=== PATIENT | female | born 1985 | race Caucasian/White ===

== ENCOUNTER → 2017-06-19 | Outpatient (CLI) | payer OTHER ==
[~2017-06-19] MED LIST: BCPILLS PO
== END | disposition home or self-care (01) ==
LOC: C.PAPS 13:15
PROVIDERS: ATTEND Physician Assistant
DX: Z12.4 Encounter for screening for malignant neoplasm of cervix (principal)

== ENCOUNTER 2020-11-27 07:08 | Inpatient (IN) ==
[2020-11-27] MEDS ORDERED: OXYTOCIN 30 UNITS/500 ML BAG IV PRN ×2 (14:29→22:53)
[2020-11-27 14:46] LABS: Hemoglobin 12.2 g/dL (12.0-16.0); Mean Corpuscular Hemoglobin 31.8 pg (25-34); Mean Corpuscular Hgb Conc 33.9 g/dL (32-36); Mean Corpuscular Volume 93.8 fL (80-100); Mean Platelet Volume 12.2 fL (7.4-10.4); Platelet Count 240 K/uL (130-400); RDW Coefficient of Variation 14.4 % (11.5-14.5); RDW Standard Deviation 49.4 fL (36.4-46.3); Red Blood Count 3.84 M/uL (4.2-5.4)
[2020-11-27] MEDS ORDERED: PENICILLIN G POTASSIUM 6 MU in DEXTROSE 5% 250 ML IV STA (22:52)
--- NOTE | 2020-11-27 22:53 | History & Physical Report ---
Date of Service November 27, 2020 Assessment & Plan (1) GDM, class A2: Admission and Anticipated Discharge Date Admission Date: November 27, 2020 History of Present Illness Chief Complaint: induction of labor for GDM on insulin Primary Care Provider: NO PCP 35 F P1001 at 39.3 weeks for IOL for GDM controlled with insulin Allergies Allergy/AdvReac Type Severity Reaction Status Date / Time No Known Drug Allergies Allergy Verified 12/21/18 11:04 Home Medications Medication Instructions Recorded Confirmed Type insulin glargine 100 unit/mL 20 unit SUBCUT AMPM 11/15/20 11/27/20 History subcutaneous solution (Lantus U-100 Insulin) vits no.124-ferrous fum 800 tab PO DAILY 11/15/20 11/27/20 History 27 mg iron-folic acid 800 mcg tablet ( Vitamin) Patient History Medical History Gestational diabetes Obesity Surgical History S/P wisdom tooth extraction Family History Other Family history of diabetes mellitus Social History Smoking Status: Former smoker Second Hand Exposure: No; Hx Alcohol Use: No Hx Substance Use: No Preferred Language: Mosotho Communication Ability: Effective Visual Impairment: No Limitations Seafood Preparer Required: No Beliefs That Will Affect Care: None marital status: Single Current Living Situation: Significant Other Current Living Situation Comment: 10 yo [place] current occupational status: employed Feels Safe at Home: Yes Diet Comment: Diabetic diet caffeine: Yes Dental Care, Regularly: Yes Seatbelt Use: always Do you think of yourself as: straight/heterosexual Assistive Devices: None 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 Review of Systems All systems reviewed & are unremarkable except as noted in HPI & below Physical Exam Constitutional: WD/WN, vitals as above comfortable Eyes: PERRL, conjunctivae normal, anicteric sclerae Respiratory: normal respiratory effort, lungs clear to auscultation Cardiovascular: RRR, no murmur, no edema Neurologic: patellar DTR's 2+ bilat, sensation intact Psychiatric: A+Ox3, euthymic affect Genitourinary: no vaginal lesions, no adnexal mass normal external appearance OB Exam Abdomen: + heart tones and + vertex Manual OB Exam: + cervical dilation 3 cm, + cervical effacement 60% and + station -2 OB Exam Monitor Tracing: + external FHT monitor used, + external uterine monitor used, + category I and + normal FHT variability Results & Data ([facility]) Vital Signs (Past 12 Hours) Vital Signs Temp Pulse Resp BP 11/27/20 20:40 36.7 C 86 18 135/89 11/27/20 19:04 18 11/27/20 14:05 93 H 126/74 Diagnostic Findings GBS is positive. Covid is negative Code Status & VTE Plan VTE Prophylaxis Plan VTE Prophylaxis will be ordered: No
[2020-11-27] MEDS: LACTATED RINGER'S 1,000 ML IV PRN (23:06)
[2020-11-28] MEDS ORDERED: BUPIVACAINE 0.25% 30 ML VIAL ONE (00:19)
[2020-11-28] MEDS ORDERED: ePHEDrine sulfate 50 MG/ML AMP ONE (00:19)
[2020-11-28] MEDS ORDERED: fentaNYL citrate 100 MCG/2 ML VIAL ONE (00:19)
[2020-11-28] MEDS ORDERED: fentaNYL 2MCG/ML ROPIVACAINE 1.25MG/ML 100 ML BAG EPI ONE (00:20)
[2020-11-28] MEDS ORDERED: NALBUPHINE HCL INJ 10 MG/ML AMP IV PRN (01:12)
[2020-11-28] MEDS ORDERED: NALOXONE HCL 0.4 MG/1 ML VIAL/CARP IV PRN (01:12)
[2020-11-28] MEDS ORDERED: ePHEDrine sulfate 50 MG/ML AMP IV PRN (01:12)
[2020-11-28] MEDS ORDERED: ONDANSETRON INJ 2 MG/ML 2 ML VIAL IV PRN (01:12)
[2020-11-28] MEDS ORDERED: NALOXONE HCL 1 MG in SODIUM CHLORIDE 0.9% 1000ML 1,000 ML IV PRN (01:12)
[2020-11-28] MEDS ORDERED: diphenhydrAMINE 50 MG/ML VIAL IV PRN (01:12)
[2020-11-28] MEDS ORDERED: fentaNYL 2MCG/ML ROPIVACAINE 1.25MG/ML 100 ML BAG EPI PRN (01:12)
--- NOTE | 2020-11-28 01:20 | Anesthesiology Consultation ---
Date of Service November 28, 2020 Assessment & Plan Chart Review Chart Review: Patient NOT seen in Pre Admission Testing and Acceptable Risk for Labor Epidural Consults Requested none ASA ASA3 Proposed Anesthesia Anesthesia Type: Labor Epidural and CSE Risk / Benefits Reviewed With: PT / POA / Parent / Guardian, Accepts Plan and Informed Consent Obtained History Height/Weight Height: 5 ft 2 in Weight: 104.3 kg Allergies Allergy/AdvReac Type Severity Reaction Status Date / Time No Known Drug Allergies Allergy Verified 12/21/18 11:04 Medications Home Medications Medication Instructions Recorded Confirmed Last Taken insulin glargine 100 unit/mL 20 unit SUBCUT AMPM 11/15/20 11/27/20 11/27/20 06:00 subcutaneous solution (Lantus U-100 Insulin) vits no.124-ferrous fum 800 tab PO DAILY 11/15/20 11/27/20 11/27/20 06:00 27 mg iron-folic acid 800 mcg tablet ( Vitamin) Active Medications Generic Name Dose Route Start Last Admin Trade Name Freq PRN Reason Stop Dose Admin Lactated Ringer's 1,000 mls @ 125 mls/hr 11/27/20 14:29 11/28/20 01:11 Lr IV 11/29/20 14:28 999 mls/hr .Q8H PRN Infusion L&D Protocol Protocol Oxytocin 30 units in 500 mls @ 4 mls/hr 11/27/20 22:53 11/28/20 01:11 Pitocin IV 11/29/20 22:52 0.24 units/hr .Q24H PRN 4 mls/hr Labor Induction/Augmentation Titration Protocol 0.24 UNITS/HR NPO Date Last Intake of Fluids: 11/28/20 Time Last Intake of Fluids: 00:30 Date Last Intake of Solids: 11/27/20 Time Last Intake of Solids: 19:30 Past Medical History Medical History Gestational diabetes Obesity Exercise / Class Metabolic Activity II 4-5 Yardwork/Stairs/Walk up hill Past Family History Family History Other Family history of diabetes mellitus Past Surgical History Surgical History S/P wisdom tooth extraction Past Anesthesia History No Hx of Anesthesia Complications and No Family Hx of Anesthesia Complications History of PONV No Hx of PONV and History of PONV Social History Smoking Status: Former smoker Hx Alcohol Use: No Hx Substance Use: No substance use type: does not use Review of Systems no chest pain or sob Physical Exam Vital Signs Last Vital Signs Temp 36.7 C 11/27/20 22:55 Pulse 86 11/28/20 01:14 Resp 18 11/28/20 00:56 BP 130/71 11/28/20 00:56 Pulse Ox 99 11/28/20 01:14 ENMT Mouth: no TMJ abnormality Thyromental Distance: > or= 3.5 Finger Breadths Mallampati Class: II Neck normal visual inspection Respiratory normal respiratory effort Auscultation: lungs clear to auscultation bilaterally Cardiovascular Rate/Rhythm: regular rate and regular rhythm Musculoskeletal Spine: normal cervical ROM Neurologic moves all extremities Psychiatric Orientation: alert and oriented x 3 Testing Laboratory Results 11/27/20 14:35 11/27/20 11/27/20 21:31 14:23 POC Glucose 103 H 118 H
[2020-11-28] MEDS: LACTATED RINGER'S 1,000 ML IV PRN (02:24)
[2020-11-28] MEDS: PENICILLIN G POTASSIUM 3 MU in DEXTROSE 5% 100 ML IV PRN ×2 (03:04→07:02)
--- NOTE | 2020-11-28 07:40 | Obstetrical Progress Note ---
Date of Service November 28, 2020 Assessment & Plan Admission and Anticipated Discharge Date Admission Date: November 27, 2020 Subjective Patient is seen and reviewed her history with her. GDMA2 on insulin Obesity GBS+ Denies any other medical problems nor surgeries No h/o STD's, no genital HSV She has received epidural for pain and 2 doses of PCN FHR categ I [place] ctxs q 2-3 min, Pitocin is at 10 miu/min Offered her AROM but wants to hold on since her left to go home. Continue to monitor closely. Results & Data ([facility]) Vital Signs (Past 12 Hours) Vital Signs Temp Pulse Resp BP Pulse Ox 11/28/20 07:34 79 97 11/28/20 07:29 70 98 11/28/20 07:26 69 131/66 11/28/20 07:24 73 98 11/28/20 07:19 74 98 11/28/20 07:14 83 99 11/28/20 07:10 36.5 C 83 20 133/67 11/28/20 07:09 84 98 11/28/20 07:04 79 98 11/28/20 06:59 73 97 11/28/20 06:57 68 129/60 11/28/20 06:54 74 97 11/28/20 06:49 71 97 11/28/20 06:44 72 98 11/28/20 06:40 70 125/66 11/28/20 06:39 76 97 11/28/20 06:34 73 98 11/28/20 06:29 69 98 11/28/20 06:26 69 124/67 11/28/20 06:24 81 98 11/28/20 06:19 78 98 11/28/20 06:14 105 H 99 11/28/20 06:11 70 139/82 11/28/20 06:09 72 97 11/28/20 06:04 76 97 11/28/20 05:59 86 97 11/28/20 05:55 74 145/83 H 11/28/20 05:54 75 97 11/28/20 05:49 76 98 11/28/20 05:44 75 98 11/28/20 05:40 76 137/82 11/28/20 05:39 79 98 11/28/20 05:34 85 98 11/28/20 05:29 87 97 11/28/20 05:26 37.1 C 80 16 127/71 11/28/20 05:24 91 H 98 11/28/20 05:19 85 98 11/28/20 05:14 84 98 11/28/20 05:09 79 99 11/28/20 05:04 87 99 11/28/20 04:59 90 98 11/28/20 04:58 68 130/68 11/28/20 04:54 78 97 11/28/20 04:49 78 98 11/28/20 04:44 82 98 11/28/20 04:40 78 124/61 11/28/20 04:39 80 97 11/28/20 04:34 78 98 11/28/20 04:29 76 97 11/28/20 04:25 71 133/70 11/28/20 04:24 71 98 11/28/20 04:19 78 97 11/28/20 04:14 76 99 11/28/20 04:11 71 138/72 11/28/20 04:09 75 99 11/28/20 04:04 77 99 11/28/20 03:59 77 99 11/28/20 03:56 72 118/57 L 11/28/20 03:54 72 98 11/28/20 03:49 75 98 11/28/20 03:44 75 98 11/28/20 03:40 75 16 120/60 11/28/20 03:39 74 98 11/28/20 03:34 73 98 11/28/20 03:29 75 97 11/28/20 03:26 71 117/59 L 11/28/20 03:24 74 97 11/28/20 03:19 73 98 11/28/20 03:14 78 98 11/28/20 03:10 77 121/63 11/28/20 03:09 79 98 11/28/20 03:04 86 98 11/28/20 02:59 80 98 11/28/20 02:55 77 112/56 L 11/28/20 02:54 72 96 11/28/20 02:49 77 97 11/28/20 02:44 74 97 11/28/20 02:41 70 18 119/57 L 11/28/20 02:39 74 98 11/28/20 02:34 86 98 11/28/20 02:29 75 98 11/28/20 02:25 77 117/59 L 11/28/20 02:24 36.8 C 83 16 99 11/28/20 02:23 85 104/59 L 11/28/20 02:19 77 98 11/28/20 02:16 82 101/50 L 11/28/20 02:14 85 99 11/28/20 02:09 80 98 11/28/20 02:04 85 111/55 L 100 11/28/20 01:59 77 100 11/28/20 01:57 90 117/56 L 11/28/20 01:54 101 H 99 11/28/20 01:50 81 129/60 11/28/20 01:49 90 99 11/28/20 01:47 100 H 107/55 L 11/28/20 01:44 85 111/58 L 98 11/28/20 01:41 90 18 105/57 L 11/28/20 01:39 97 H 98 11/28/20 01:38 79 125/61 11/28/20 01:35 88 152/77 H 11/28/20 01:34 85 99 11/28/20 01:32 88 161/85 H 11/28/20 01:29 90 155/86 H 98 11/28/20 01:24 102 H 100 11/28/20 01:19 95 H 100 11/28/20 01:14 86 99 11/28/20 01:09 87 98 11/28/20 00:56 85 18 130/71 11/27/20 23:54 79 18 136/65 11/27/20 22:55 36.7 C 83 18 120/62 11/27/20 20:40 36.7 C 86 18 135/89
--- NOTE | 2020-11-28 08:41 | Obstetrical Progress Note ---
Date of Service November 28, 2020 Assessment & Plan Admission and Anticipated Discharge Date Admission Date: November 27, 2020 Subjective Patient is reevaluated. Patient had SROM and it was clear. heart rate has been category 1 with early decelerations with contractions. Vaginal exam cervix is 9 cm dilated, 90% effaced head at 0 station without contraction and +1 with contraction. Patient does not have urge to push. No more early decelerations on heart rate. Patient has been complaining of right medial thigh skin irritation, redness. Noted to have 3 x 3 cm indurated, red skin with yellow pus on the tip. Squeezed about 2 to 3 mm of pus and sent for culture. Patient has good epidural did not feel any pain or discomfort. Skin was cleaned with Betadine. Continue to monitor closely, start pushing when she feels urge. Results & Data ([facility]) Vital Signs (Past 12 Hours) Vital Signs Temp Pulse Resp BP Pulse Ox 11/28/20 08:34 85 98 11/28/20 08:29 73 99 11/28/20 08:24 78 97 11/28/20 08:19 81 99 11/28/20 08:14 82 99 11/28/20 08:10 77 120/71 11/28/20 08:09 78 99 11/28/20 08:04 73 99 11/28/20 07:59 74 98 11/28/20 07:55 76 127/64 11/28/20 07:54 78 99 11/28/20 07:49 70 99 11/28/20 07:44 76 99 11/28/20 07:41 74 125/75 11/28/20 07:39 76 99 11/28/20 07:34 79 97 11/28/20 07:29 70 98 11/28/20 07:26 69 131/66 11/28/20 07:24 73 98 11/28/20 07:19 74 98 11/28/20 07:14 83 99 11/28/20 07:10 36.5 C 83 20 133/67 11/28/20 07:09 84 98 11/28/20 07:04 79 98 11/28/20 06:59 73 97 11/28/20 06:57 68 129/60 11/28/20 06:54 74 97 11/28/20 06:49 71 97 11/28/20 06:44 72 98 11/28/20 06:40 70 125/66 11/28/20 06:39 76 97 11/28/20 06:34 73 98 11/28/20 06:29 69 98 11/28/20 06:26 69 124/67 11/28/20 06:24 81 98 11/28/20 06:19 78 98 11/28/20 06:14 105 H 99 11/28/20 06:11 70 139/82 11/28/20 06:09 72 97 11/28/20 06:04 76 97 11/28/20 05:59 86 97 11/28/20 05:55 74 145/83 H 11/28/20 05:54 75 97 11/28/20 05:49 76 98 11/28/20 05:44 75 98 11/28/20 05:40 76 137/82 11/28/20 05:39 79 98 11/28/20 05:34 85 98 11/28/20 05:29 87 97 11/28/20 05:26 37.1 C 80 16 127/71 11/28/20 05:24 91 H 98 11/28/20 05:19 85 98 11/28/20 05:14 84 98 11/28/20 05:09 79 99 11/28/20 05:04 87 99 11/28/20 04:59 90 98 11/28/20 04:58 68 130/68 11/28/20 04:54 78 97 11/28/20 04:49 78 98 11/28/20 04:44 82 98 11/28/20 04:40 78 124/61 11/28/20 04:39 80 97 11/28/20 04:34 78 98 11/28/20 04:29 76 97 11/28/20 04:25 71 133/70 11/28/20 04:24 71 98 11/28/20 04:19 78 97 11/28/20 04:14 76 99 11/28/20 04:11 71 138/72 11/28/20 04:09 75 99 11/28/20 04:04 77 99 11/28/20 03:59 77 99 11/28/20 03:56 72 118/57 L 11/28/20 03:54 72 98 11/28/20 03:49 75 98 11/28/20 03:44 75 98 11/28/20 03:40 75 16 120/60 11/28/20 03:39 74 98 11/28/20 03:34 73 98 11/28/20 03:29 75 97 11/28/20 03:26 71 117/59 L 11/28/20 03:24 74 97 11/28/20 03:19 73 98 11/28/20 03:14 78 98 11/28/20 03:10 77 121/63 11/28/20 03:09 79 98 11/28/20 03:04 86 98 11/28/20 02:59 80 98 11/28/20 02:55 77 112/56 L 11/28/20 02:54 72 96 11/28/20 02:49 77 97 11/28/20 02:44 74 97 11/28/20 02:41 70 18 119/57 L 11/28/20 02:39 74 98 11/28/20 02:34 86 98 11/28/20 02:29 75 98 11/28/20 02:25 77 117/59 L 11/28/20 02:24 36.8 C 83 16 99 11/28/20 02:23 85 104/59 L 11/28/20 02:19 77 98 11/28/20 02:16 82 101/50 L 11/28/20 02:14 85 99 11/28/20 02:09 80 98 11/28/20 02:04 85 111/55 L 100 11/28/20 01:59 77 100 11/28/20 01:57 90 117/56 L 11/28/20 01:54 101 H 99 11/28/20 01:50 81 129/60 11/28/20 01:49 90 99 11/28/20 01:47 100 H 107/55 L 11/28/20 01:44 85 111/58 L 98 11/28/20 01:41 90 18 105/57 L 11/28/20 01:39 97 H 98 11/28/20 01:38 79 125/61 11/28/20 01:35 88 152/77 H 11/28/20 01:34 85 99 11/28/20 01:32 88 161/85 H 11/28/20 01:29 90 155/86 H 98 11/28/20 01:24 102 H 100 11/28/20 01:19 95 H 100 11/28/20 01:14 86 99 11/28/20 01:09 87 98 11/28/20 00:56 85 18 130/71 11/27/20 23:54 79 18 136/65 11/27/20 22:55 36.7 C 83 18 120/62 11/27/20 20:40 36.7 C 86 18 135/89
[2020-11-28] MEDS ORDERED: CLINDAMYCIN 600 MG in DEXTROSE 5% 50 ML IV ONE (09:00)
[2020-11-28] MEDS ORDERED: ACETAMINOPHEN 325 MG TAB PO PRN (10:55)
[2020-11-28] MEDS ORDERED: MEASLES, MUMPS & RUBELLA VIRUS VIAL SQ ONE (10:55)
[2020-11-28] MEDS ORDERED: BENZOCAINE 20% AER SPR 82.5 GM CAN EXT PRN (10:55)
[2020-11-28] MEDS ORDERED: HYDROCORTISONE ACETATE 25 MG SUPP PR PRN (10:55)
[2020-11-28] MEDS ORDERED: OXYTOCIN 30 UNITS/500 ML BAG IV PRN (10:55)
[2020-11-28] MEDS ORDERED: DIPHTHERIA/TETANUS/PERTUSSIS 0.5 ML SYR/VIAL IM ONE (10:55)
[2020-11-28] MEDS ORDERED: SUPERCREAM 0.870% 15 GM JAR EXT PRN (10:55)
--- NOTE | 2020-11-28 10:59 | Delivery Summary ---
Vaginal Delivery Summary Date of Service November 28, 2020 Vaginal Delivery Summary Patient was found to be fully dilated and desire to push she pushed only once and delivered the head without difficulty. Shoulders were delivered with minimal traction. Baby was handed off to the mother that her mouth and nose were suctioned, cord was clamped x2 and cut at 1 minute delay. Baby has been vigorously moving and crying. Vagina and perineum were checked for lacerations. There was a first-degree clitoral laceration superior to the urethra. Straight catheter was placed into the urethra, and this laceration was repaired with 3-0 Vicryl on a SH needle with [id number] stitches x2. Excellent hemostasis was achieved. Straight catheter was removed. The rest of the vagina and perineum were intact. Placenta was found to be in the vagina, delivered spontaneously as intact and complete. Uterus was explored, found to be empty, cleared of all clots and debris. EBL was 100 mL, fundus was firm. Mom and baby tolerated procedure well. Sponge, lap, instrument count was correct x2. The baby was a viable male , Apgars 9/9, weight is pending. No complications happened, I was present during whole procedure.
--- NOTE | 2020-11-28 13:10 | Anesthesia Procedure Note ---
Date of Service November 28, 2020 Anesthesia Post Epidural Note Vital Signs Vital Signs: Temp Pulse Resp BP Pulse Ox 36.5 C 109 H 20 121/57 L 99 11/28/20 07:10 11/28/20 12:54 11/28/20 07:10 11/28/20 12:54 11/28/20 10:44 Notes Mental Status: alert / awake / arousable and participated in evaluation Nausea / Vomiting: adequately controlled Pain: adequately controlled Airway Patency, RR, SpO2: stable & adequate BP & HR: stable & adequate Hydration State: stable & adequate Neuraxial Anesthesia: was administered and sensory block is resolving Anesthetic Complications: no major complications apparent and Pt Satisfied with anesthetic care Epidural: Removed without complications and With tip intact Notes: Epidural site clean, dry and intact. No signs of edema, erythema or bruising at insertion site. Pt instructed to request anesthesia if she has residual lower extremity numbness or if she develops lower extremity pain or weakness, back pain or headache.
[2020-11-28] MEDS: CLINDAMYCIN HCL 150 MG CAP PO SCH ×2 (14:09→21:28)
[2020-11-28] MEDS: IBUPROFEN 600 MG TAB PO PRN (18:01)
[2020-11-28] MEDS: DOCUSATE SODIUM 100 MG CAP PO SCH (21:28)
[2020-11-29] MEDS: IBUPROFEN 600 MG TAB PO PRN ×2 (03:26→09:19)
[2020-11-29] MEDS: CLINDAMYCIN HCL 150 MG CAP PO SCH (05:42)
[2020-11-29 06:39] LABS: Hematocrit (blood only) 31.1 % (37-47); Hemoglobin 10.4 g/dL (12.0-16.0); Mean Corpuscular Hemoglobin 31.2 pg (25-34); Mean Corpuscular Hgb Conc 33.4 g/dL (32-36); Mean Corpuscular Volume 93.4 fL (80-100); Mean Platelet Volume 12.2 fL (7.4-10.4); Platelet Count 199 K/uL (130-400); RDW Coefficient of Variation 14.7 % (11.5-14.5); RDW Standard Deviation 50.2 fL (36.4-46.3); Red Blood Count 3.33 M/uL (4.2-5.4); White Blood Count 13.06 K/uL (4.8-10.8)
--- NOTE | 2020-11-29 07:34 | Obstetrical Progress Note ---
Date of Service November 29, 2020 Assessment & Plan Admission and Anticipated Discharge Date Admission Date: November 27, 2020 Subjective abdomen soft and non tender no calf tenderness ambulating well vaginal bleeding scant hgb 10.4 Results & Data ([facility]) Vital Signs (Past 12 Hours) Vital Signs Temp Pulse Resp BP Pulse Ox 11/29/20 03:20 36.5 C 88 18 144/85 H 97 11/28/20 23:10 36.6 C 85 16 125/83 98
[2020-11-29] MEDS ORDERED: FERROUS SULFATE 325 MG TAB PO SCH (08:00)
[2020-11-29] MEDS ORDERED: PRENATAL VITAMIN 1 TAB PO SCH (08:00)
[2020-11-29] MEDS: DOCUSATE SODIUM 100 MG CAP PO SCH (09:19)
[2020-11-29] MEDS ORDERED: bisacodyL 5 MG TABEC PO SCH (20:00)
[2020-11-30] MEDS ORDERED: bisacodyL 10 MG SUPP PR PRN (06:00)
== END 2020-11-29 13:30 | disposition home or self-care (01) | DRG 807 ==
LOC: 4S1 13:32 → 4S2 11-28 14:27
DX: O24.414 Gestational diabetes mellitus in pregnancy, insulin controlled; O99.824 Streptococcus B carrier state complicating childbirth; O70.0 First degree perineal laceration during delivery; Z3A.39 39 weeks gestation of pregnancy; Z37.0 Single live birth; O42.92 Full-term premature rupture of membranes, unspecified as to length of time between rupture and onset of labor; Z87.891 Personal history of nicotine dependence